=== PATIENT | male | born 1950 | race Two or more races ===

== ENCOUNTER 2018-03-24 15:01 | Emergency (ER) | payer MEDICARE, MEDICAID ==
[~2018-03-24] VITALS: Ht 175.3 cm; Wt 72.0 kg
[2018-03-24] MEDS ORDERED: LORAZEPAM 2MG/ML CPJ IV ONE (15:30)
[2018-03-24 15:55] LABS: BASOPHILS % 0.7 % (0.0-2.0); EOSINOPHILS % 3.2 % (0.0-5.0); HEMATOCRIT. 38.4 % (42.0-52.0); HEMOGLOBIN. 13.1 g/dL (14.0-18.0); LYMPHOCYTES % 23.2 % (20.0-50.0); MEAN CORPUSCULAR HEMOGLOBIN 30.3 pg (28.0-32.0); MEAN CORPUSCULAR VOLUME 89.1 fL (80.0-94.0); MEAN PLATELET VOLUME 7.7 fl (7.4-10.4); MONOCYTES % 8.7 % (2.0-8.0); NEUTROPHILS % 64.2 % (40.0-76.0); PLATELET 215 x1000/uL (130-400); RED BLOOD CELL COUNT 4.31 mill/uL (4.7-6.1); RED CELL DISTRIBUTION WIDTH 13.6 % (11.6-14.6)
[2018-03-24 16:05] LABS: CHLORIDE 107 mEq/L (98-107)
[2018-03-24 16:12] LABS: ETHANOL BLOOD < 10 mg/dL
[2018-03-24 17:56] LABS: CREATINE KINASE 73 IU/L (39-308)
[2018-03-24 18:27] LABS: CLARITY URINE CLEAR (CLEAR); COLOR URINE YELLOW (YELLOW); KETONES URINE TRACE (NEGATIVE); LEUKOCYTE ESTERASE URINE NEGATIVE (NEGATIVE); NITRITE URINE NEGATIVE (NEGATIVE); OCCULT BLOOD URINE NEGATIVE (NEGATIVE); PH URINE 6.5 (4.5-8.0); PROTEIN URINE NEGATIVE (NEGATIVE); SPECIFIC GRAVITY URINE 1.019 (1.005-1.030)
[2018-03-24 18:41] LABS: *AMPHETAMINES SCREEN URINE NEGATIVE (NEGATIVE); *BARBITURATES SCREEN URINE NEGATIVE (NEGATIVE); *BENZODIAZEPINES SCREEN URINE NEGATIVE (NEGATIVE); *COCAINE SCREEN URINE NEGATIVE (NEGATIVE); METHADONE URINE SCREEN NEGATIVE (NEGATIVE); OPIATES URINE SCREEN NEGATIVE (NEGATIVE)
[2018-03-24 18:42] LABS: PHENCYCLIDINE URINE SCREEN NEGATIVE (NEGATIVE)
[2018-03-24 18:43] LABS: CANNABINOID URINE SCREEN NEGATIVE (NEGATIVE)
[2018-03-24] MEDS ORDERED: LORAZEPAM 1MG TABLET PO ONE (20:45)
[2018-03-25] MEDS ORDERED: TRAZODONE HCL 100MG TABLET PO ONE (00:30)
[2018-03-25] MEDS ORDERED: LORAZEPAM 1MG TABLET PO ONE ×3 (00:30→12:45)
[2018-03-25] MEDS ORDERED: OLANZAPINE 5MG TABLET PO SCH (15:00)
[2018-03-25] MEDS ORDERED: ACETAMINOPHEN 325MG TABLET PO ONE (17:15)
[2018-03-25 19:00] VITALS: BP 146/65
== END 2018-03-25 20:12 ==
LOC: ER 15:01
DX: F41.9 Anxiety disorder, unspecified (principal); F32.9 Major depressive disorder, single episode, unspecified; I10 Essential (primary) hypertension; G47.00 Insomnia, unspecified; R51 Headache; R45.851 Suicidal ideations; G62.9 Polyneuropathy, unspecified
CPT/HCPCS: 36415; 80048; 80305; 80307; 80329; 81003; 82550; 85025; 96374; 99285; G0482; J2060